=== PATIENT | male | born 1990 | race Caucasian/White ===

== ENCOUNTER 2016-06-09 12:41 | Emergency (ER) | payer OTHER ==
[2016-06-09] MEDS ORDERED: IBUPROFEN 800 MG TABLET ONE (12:53)
--- NOTE | 2016-06-09 13:28 | RAD ---
Exam: Three-view right ankle COMPARISON: 04/27/2016, 03/24/2016, 02/18/2016 INDICATION: Pain. Right ankle right over by quad, worried about re-injury. Findings: AP, lateral and oblique views of the right ankle were obtained. Mild soft tissue swelling persists about the ankle, most pronounced medially. A few faint soft tissue calcifications are again noted posteriorly. Overall normal bone mineralization. Posttraumatic and postsurgical changes are again identified, with ghost tracks again identified within the distal fibula. Residual lucency at the site of prior fracture remains in the distal fibula as seen on the oblique view and is unchanged. Two partially threaded screws are again noted within the medial malleolus. No acute fracture is identified. Ankle mortise intact. IMPRESSION: No acute osseous abnormality in the right ankle.
== END 2016-06-09 13:53 | disposition home or self-care (01) ==
LOC: ED 12:41
DX: S93.401A Sprain of unspecified ligament of right ankle, initial encounter (principal); W18.30XA Fall on same level, unspecified, initial encounter; Y92.9 Unspecified place or not applicable
CPT/HCPCS: 73610; 99283 ×2; A9270

== ENCOUNTER 2016-08-09 13:18 | Emergency (ER) | payer OTHER ==
[2016-08-09] MEDS ORDERED: DIPHTH,PERTUSS(ACELL),TET VAC 0.5 ML VIAL IM V ONE (14:30)
[2016-08-09] MEDS ORDERED: CEFTRIAXONE SODIUM 1 G VIAL ONE (14:31)
[2016-08-09] MEDS ORDERED: AMOX 875 MG/CLAV 125 MG 1 EACH TABLET ONE (14:57)
[2016-08-09] MEDS ORDERED: OXYCODONE HCL 5 MG TABLET ONE (15:08)
[2016-08-09] MEDS ORDERED: RABIES VACCINE 2.5 UNIT IM V ONE (16:00)
[2016-08-09] MEDS ORDERED: RABIES IMMUNE GLOBULIN 300 UNIT/2 ML IM ONE (16:00)
--- NOTE | 2016-08-09 16:09 | RAD ---
HISTORY: .By, puncture wound to dorsum of right hand. COMPARISON: None TECHNIQUE: Three views of the right hand FINDINGS: Bones: No fracture or dislocation. Joints: Unremarkable. Soft tissue: Soft tissue swelling is noted along the dorsum of the hand. No soft tissue gas. IMPRESSION: No fracture or dislocation. Soft tissue swelling. No soft tissue gas is identified.
== END 2016-08-09 18:11 | disposition home or self-care (01) ==
LOC: ED 13:18
DX: S61.451A Open bite of right hand, initial encounter (principal); Z23 Encounter for immunization; Z29.14 Encounter for prophylactic rabies immune globulin; W54.0XXA Bitten by dog, initial encounter; Y93.02 Activity, running; Y92.828 Other wilderness area as the place of occurrence of the external cause
CPT/HCPCS: 90715; 90675; 90376; 73130; 90471 ×3; 99283 ×2; 96372; A9270 ×2; J0696